=== PATIENT | male | born 1970 | race African-American/Black ===

== ENCOUNTER 2017-06-17 13:00 | Emergency (ER) | payer OTHER, SELFPAY ==
--- NOTE | 2017-06-17 15:00 | RAD ---
PA AND LATERAL CHEST: COMPARISON: 02/20/2010 FINDINGS: Heart size and mediastinum are within normal limits. Lungs are clear of infiltrates. Mild scoliosi s, convexed to the left. IMPRESSION: No active intrathoracic disease. POS: OFF
== END 2017-06-17 13:51 | disposition home or self-care (01) ==
LOC: ERS 13:00
DX: J06.9 Acute upper respiratory infection, unspecified (principal); I10 Essential (primary) hypertension; F41.9 Anxiety disorder, unspecified; Z79.899 Other long term (current) drug therapy
CPT/HCPCS: 71020

== ENCOUNTER 2017-10-22 09:03 | Emergency (ER) | payer OTHER, SELFPAY ==
[2017-10-22 09:44] LABS: Hemoglobin 13.2 g/dL (14.0-18.0); Mean Corpuscular HGB CONC 32.1 g/dL (32.0-36.0); Mean Corpuscular Hemoglobin 25.9 pg (27.0-31.0); Mean Corpuscular Volume 80.7 fl (80.0-94.0); Platelet Count 211 thou/uL (130-400); RBC Distribution Width 13.4 % (11.5-14.5); Red Blood Cell (RBC) Count 5.09 mill/uL (4.70-6.10); White Blood Cell (WBC) Count 6.3 thou/uL (4.8-10.8)
[2017-10-22 10:01] LABS: ALT (SGPT) 63 U/L (8-55); AST (SGOT) 68 U/L (5-34); Albumin 4.5 g/dL (3.5-5.0); Alkaline Phosphatase 77 U/L (40-150); Anion Gap 15 mmol/L (10-20); BUN (Urea Nitrogen) 11 mg/dL (8.9-20.6); Bilirubin, Total 0.6 mg/dL (0.2-1.2); Calc. Creatinine Clearance 0 mL/min (70-130); Calcium 9.8 mg/dL (7.8-10.44); Carbon Dioxide 26 mmol/L (22-29); Chloride 100 mmol/L (98-107); Estimated GFR-MDRD 85; Globulin 3.8 g/dL (2.4-3.5); Glucose 153 mg/dL (70-105); Potassium 4.3 mmol/L (3.5-5.1); Protein, Total 8.3 g/dL (6.0-8.3); Sodium 137 mmol/L (136-145)
[2017-10-22 10:04] LABS: Eosinophils 1 % (0-10); Lymphocytes 49 % (21-51); MDiff Complete? YES; Monocytes 1 % (0-10); Neutrophil 36 % (42-75); PLT Morphology Comment Appears Adequate; Reactive Lymphocytes 13 % (0-10); Stomatocytes SLIGHT = 2-5 cells (100X) (0-1/hpf)
[2017-10-22] MEDS ORDERED: Ketorolac Tromethamine 60 MG/2 ML VIAL ONE (10:48)
--- NOTE | 2017-10-22 10:55 | ULT ---
LEFT LOWER EXTREMITY VENOUS DUPLEX ULTRASOUND INCLUDING COLOR AND SPECTRAL DOPPLER IMAGING: HISTORY: A 46-year-old male with a history of left leg pain, primarily in the left calf and lateral thigh. FINDINGS: Exam performed from groin to ankle including visualized greater saphenous, common femoral, superficia l femoral, profunda femoral, popliteal, trifurcation, and posterior tibial vein regions. There is ph asic flow with normal compressibility and normal augmentation at all levels. No intraluminal thrombu s. IMPRESSION: No evidence of deep venous thrombosis. POS: ERIC
== END 2017-10-22 12:06 | disposition home or self-care (01) ==
LOC: ERS 09:03
DX: M79.662 Pain in left lower leg (principal); I10 Essential (primary) hypertension; F41.9 Anxiety disorder, unspecified; Z79.899 Other long term (current) drug therapy
CPT/HCPCS: 36415; 80053; 85025; 85379; 96372; J1885

== ENCOUNTER 2018-01-06 15:18 | Inpatient (IN) | payer SELFPAY ==
[2018-01-06] MEDS ORDERED: methylPREDNISolone Sod Succ/PF 125 MG/2 ML VIAL ONE (16:09)
[2018-01-06] MEDS ORDERED: diphenhydrAMINE 50 MG/ML VIAL ONE (16:09)
[2018-01-06 16:55] LABS: Hemoglobin 12.7 g/dL (14.0-18.0); Mean Corpuscular HGB CONC 31.9 g/dL (32.0-36.0); Mean Corpuscular Hemoglobin 25.6 pg (27.0-31.0); Mean Corpuscular Volume 80.1 fl (80.0-94.0); Mean Platelet Volume 8.3 fL (7.4-10.4); Platelet Count 203 thou/uL (130-400); RBC Distribution Width 13.6 % (11.5-14.5); Red Blood Cell (RBC) Count 4.97 mill/uL (4.70-6.10)
[2018-01-06 17:11] LABS: Band 5 % (5-11); Hypochromia SLIGHT = 6-15 cells (100X) (0-5/hpf); Lymphocytes 52 % (21-51); MDiff Complete? YES; Monocytes 4 % (0-10); Neutrophil 32 % (42-75); PLT Morphology Comment Appears Adequate; Polychromasia SLIGHT = 2-3 cells (100X) (0-2/hpf); Reactive Lymphocytes 7 % (0-10); Target Cells SLIGHT = 2-5 cells (100X) (0-1/hpf)
--- NOTE | 2018-01-06 17:14 | PDOC.FPRHP ---
- History of Present Illness Chief Complaint: Lip Swelling History of Present Illness: 47 yo AA male w/ pmh of HTN comes in with cc of lip swelling. Says he started to notice his lips to swell around 1:00. Pts friend who is in the room with him says it actually started earlier in the day. He had two [employer] for lunch around that time. Friend says lips were swelling before eating. Reports he was outside working in the yard. Thought he was bit by something. Was not around any new substances or any new chemicals. Pt reports getting a little SOB and felt like his throat was scratching before he came to the ER. Denies any n/v/d/c. Denies any chest pain. Pt denies any lightheadness or dizziness. During the time of the exam he said his mouth was dry and having a hard time swallowing. But had recently been given benadryl ED Course: benadryll, Famotidine, Solumedrol - Allergies/Adverse Reactions Allergies Allergy/AdvReac Type Severity Reaction Status Date / Time lisinopril Allergy Verified 01/06/18 17:22 - Home Medications Medication Instructions Recorded Confirmed Type Lisinopril [Zestril] 01/06/18 History - History PMHx: HTN PSHx: None FHx: Noncontributory Social: never smoker, drinks 6-10 beers a day, no illicit drug use - Review of Systems General: denies: fever/chills, weight/appetite/sleep changes, night sweats, fatigue Eyes: denies: eye pain, vision changes, other ENT: denies: nasal congestion, rhinorrhea, other Respiratory: reports: shortness of breath. denies: cough, congestion, exercise intolerance, other Cardiovascular: reports: edema (Lips very swollen and edematous). denies: chest pain, palpitation, paroxysmal nocturnal dyspnea Gastrointestinal: denies: nausea, vomiting, diarrhea, constipation, abdominal pain, GI bleeding Genitourinary: denies: incontinence, dysuria, discharge Skin: denies: rashes, lesions, jaundice, itching, other Musculoskeletal: reports: swelling (Of lips). denies: pain, tenderness, stiffness Neurological: denies: numbness, syncope, seizure, weakness Psychological: denies: anxiety, depression - Vital signs BP: [] HR: [] RR: [] Tmax: [] Pox: []% on [] Wt: [] - Physical Exam Constitutional: NAD, awake, alert and oriented, well developed HEENT: normocephalic and atraumatic, PERRLA, conjunctiva clear, no scleral icterus, TM's clear and intact, grossly normal hearing, normal nasal mucosa -HEENT: Lips very swollen. Tongue not swollen, airway clear. No sign of acute swelling Neck: supple, trachea midline, no LAD, no JVD, no thyromegaly, no bruits Chest: no-tender to palpation, no lesions Heart: RRR, normal S1/S2, no murmurs/rubs/gallops, pulses present, no edema Lungs: CTAB, no respiratory distress, good air movement, no rales/rhonchi, no wheezing Abdomen: soft, non-tender, bowel sounds present, no masses/distention Musculoskeletal: normal structure, normal tone Neurological: no focal deficit, normal sensation Skin: no rash/lesions, good turgor, capillary refill <2 seconds Heme/Lymphatic: no unusual bruising or bleeding, no purpura, no petechia Psychiatric: normal mood and affect, good judgment and insight, intact recent and remote memory FMR H&P: Results - Labs Result Diagrams: 01/06/18 16:31 01/06/18 16:31 Lab results: WBC 5.0 thou/uL (4.8-10.8) 01/06/18 16:31 Hgb 12.7 g/dL (14.0-18.0) L 01/06/18 16:31 Hct 39.8 % (42.0-52.0) L 01/06/18 16:31 MCV 80.1 fl (80.0-94.0) 01/06/18 16:31 Plt Count 203 thou/uL (130-400) 01/06/18 16:31 - EKG Interpretation EKG: No EKG FMR H&P: A/P - Problem List (1) Angioedema Current Visit: Yes Status: Acute Code(s): T78.3XXA - ANGIONEUROTIC EDEMA, INITIAL ENCOUNTER (2) HTN (hypertension) Current Visit: Yes Status: Acute Code(s): I10 - ESSENTIAL (PRIMARY) HYPERTENSION (3) Alcohol abuse Current Visit: Yes Status: Acute Code(s): F10.10 - ALCOHOL ABUSE, UNCOMPLICATED - Plan Angioedema -Lips swollen, throat scratchy upon admission. -Been on lisinopril for a year. Never had any problems before. Will discontinue at this time and the rest of his life. -Solumedrol ana laura -Famotidiine ana laura -Benadryll prn -ENT consulted- Dr. Taylor- Came and looked at throat. Clear at this time -Admit to IMCU for close observation HTN -discontinue lisinopril for life Alcohol Abuse -ASE protocol -Counseled on cutting back FMR H&P: Upper Level - Pertinent history Please refer to Dr. Solitario's detailed HPI for most details. Pt is a 47 yo BM w/ PMH of htn who presents to the ED with several hours of increasing swelling of his lips. He reports that he took his lisinopril in the morning, has been on the medication for about 1 year prescribed by his PCP at [facility]. He started noticing progressive swelling of his lower lip and started to feel like he was having some trouble breathing so he came to the ED. He had been working outside and thought it may have been a bug bite. No new foods today. Received famotidine, benadryl and steroids in ED. He is feeling better now, states his throat feels a bit dry after the benadryl, ENT has evaluated his airway and no edema of his tongue or airway present. Plan to Obs o/n in IMCU in the event of worsening and need to establish airway. General: AOx4, appears in no acute distress, appropriately dressed, groomed, appears approximate stated age. HEENT: moist mucus membranes, no pharyngeal edema, no tongue swelling, significant swelling of lower lip, no pincer vitaly or bite vitaly evident Cardiac: RRR, no murmurs, gallops, clicks or rubs Lungs: CTA, no wheezes, rales, rubs, rhonchi Abdomen: soft, non TTP Extremities: no peripheral edema A/P 1. angioedema 2/2 to [id number] pt to never again use tram-i medication for his htn, will need to follow up with his PCP to start another agent. Will admit to IMCU and obs o/n for worsening. Continue steroids, famotidine, benadryl , swallow study, NPO 2. htn-discontinue tram-i 3. alcohol dependence-drinks 6-10 daily, will implement ASE protocol for monitoring of signs of withdrawal in the event of extended stay - Plan Date/Time: 01/06/18 1710 I, Anna Holliday, have evaluated this patient and agree with findings/plan as outlined by sports internship resident. Pertinent changes/additions are listed here. Attending Addendum - Attending Addendum Date/Time: 01/07/18 0006 I personally evaluated the patient and discussed the management with Dr. Solitario on 01/06/18. I agree with the History, Examination, Assessment and Plan documented above with any addition or exceptions noted below- 47 yo male with h/o HTN presented c /o lip swelling and some scratchiness in his throat that began today. States that he had been working outside and thought he had been bit by something. After the swelling worsened he presented to ER. Of significance he is on an TRAM- inhibitor for his BP. PMH/PSH/All/Meds/ ROS reviewed and agree with resident's documentation. Afebrile P 69 BP 123/90 RR12 99% RA Exam repeated by me and agree with resident's findings. A/P: Angioedema secondary to TRAM inhibitor- patient evaluated by ENT and no evidence of airway obstruction or compromise. Monitor in IMCU overnight. Continue IV steroids, famotidine. 2) HTN- stable currently; continue to monitor and use alternate class of medication for control. 3) H/o alcohol use- ASE protocol.
[2018-01-06] MEDS ORDERED: Ondansetron HCl/PF 4 MG/2 ML Vial IVP PRN (17:15)
[2018-01-06 17:20] LABS: ALT (SGPT) 154 U/L (8-55); AST (SGOT) 149 U/L (5-34); Albumin 4.6 g/dL (3.5-5.0); Alkaline Phosphatase 94 U/L (40-150); Anion Gap 17 mmol/L (10-20); BUN (Urea Nitrogen) 6 mg/dL (8.9-20.6); Bilirubin, Total 0.6 mg/dL (0.2-1.2); Calc. Creatinine Clearance 0 mL/min (70-130); Calcium 9.9 mg/dL (7.8-10.44); Carbon Dioxide 25 mmol/L (22-29); Chloride 98 mmol/L (98-107); Estimated GFR-MDRD 86; Globulin 3.9 g/dL (2.4-3.5); Glucose 77 mg/dL (70-105); Potassium 4.3 mmol/L (3.5-5.1); Protein, Total 8.5 g/dL (6.0-8.3); Sodium 136 mmol/L (136-145)
[2018-01-06] MEDS ORDERED: Diazepam 5 MG TAB PO PRN (17:41)
[2018-01-06] MEDS ORDERED: Thiamine HCl 200 MG/2 ML VIAL IM SCH (17:45)
[2018-01-06] MEDS ORDERED: Diazepam 5 MG TAB PO SCH (17:45)
[2018-01-06] MEDS ORDERED: Famotidine 40 MG/4 ML VIAL SLOW IVP SCH ×2 (18:00→21:00)
[2018-01-06 18:20] VITALS: BMI 24.3
[2018-01-06] MEDS ORDERED: diphenhydrAMINE 25 MG CAP PO PRN (20:10)
[2018-01-07] MEDS ORDERED: Diazepam 5 MG TAB PO PRN (04:00)
[2018-01-07 07:27] VITALS: BP 121/78; TEMP 98.1
--- NOTE | 2018-01-07 08:33 | PDOC.FM ---
- Subjective Subjective: Pt doing much better this morning. Denies any SOB. Denies throat being scratchy or itching anywhere. No acute events overnight. No other problems at this time - Objective MAR Reviewed: Yes Vital Signs & Weight: Vital Signs (12 hours) Temp Pulse Resp BP Pulse Ox 01/07/18 07:26 98.1 F 67 16 121/78 99 Weight Weight 72.575 kg I&O: 01/06/18 01/07/18 01/08/18 06:59 06:59 06:59 Intake Total 300 Output Total 450 Balance -150 Result Diagrams: 01/06/18 16:31 01/06/18 16:31 EKG Reviewed by me: Yes Phys Exam - Physical Examination Constitutional: NAD HEENT: PERRLA, moist MMs, sclera anicteric lips still swollen a little, much improved from yesterday Neck: no nodes, no JVD, supple, full ROM Respiratory: no wheezing, no rales, no rhonchi, clear to auscultation bilateral Cardiovascular: RRR, no significant murmur Gastrointestinal: soft, non-tender, no distention, positive bowel sounds Musculoskeletal: no edema, pulses present Neurological: non-focal, normal sensation, moves all 4 limbs Lymphatic: no nodes Psychiatric: normal affect, A&O x 3 Skin: no rash, normal turgor, cap refill <2 seconds Dx/Plan (1) Angioedema Code(s): T78.3XXA - ANGIONEUROTIC EDEMA, INITIAL ENCOUNTER Status: Acute (2) HTN (hypertension) Code(s): I10 - ESSENTIAL (PRIMARY) HYPERTENSION Status: Acute (3) Alcohol abuse Code(s): F10.10 - ALCOHOL ABUSE, UNCOMPLICATED Status: Acute - Plan Plan: Angioedema -Lips swollen, throat scratchy upon admission. Swelling has improved significantly. Pt doing better. Breahting fine. Reports no scratchy throat. -Been on lisinopril for a year. Never had any problems before. Will discontinue at this time and the rest of his life. -Solumedrol ana laura -Famotidiine ana laura -Benadryll prn -ENT consulted- Dr. Taylor- Came and looked at throat yesterday. Clear at this time. HTN -discontinue lisinopril for life -F/u outpatient to reassess blood pressure Alcohol Abuse -ASE protocol -Counseled on cutting back
[2018-01-07] MEDS ORDERED: Magnesium Oxide 400 MG TAB PO SCH (09:00)
[2018-01-07] MEDS ORDERED: Folic Acid 1 MG TAB PO SCH (09:00)
[2018-01-07] MEDS ORDERED: Multivitamin W/ Minerals 1 TAB PO SCH (09:00)
[2018-01-07] MEDS ORDERED: Famotidine 40 MG/4 ML VIAL SLOW IVP SCH (09:00)
--- NOTE | 2018-01-07 11:25 | HP ---
DATE OF SERVICE: 01/07/2018 This is an addendum to the note of Dr. Yefri Solitario. HISTORY OF PRESENT ILLNESS: Mr. Souza is a pleasant 47-year-old black male patient who has been on li sinopril for high blood pressure for at least the last year. Yesterday, he developed some lower lip edema and a feeling of dyspnea. He presented to the emergency room with signs and symptoms of angioe mouna. He was admitted overnight for observation. By the next morning the swelling had resolved comp letely. He never demonstrated any airway compromise. LABORATORY DATA: CBC shows a white count of 12,000. His hemoglobin was 12.7, hematocrit is 39.8. C hemistries: Sodium 136, potassium 4.3, chloride 98, bicarbonate 25, BUN is 6, creatinine is 1.11. L FTs are elevated with an AST of 149 and ALT of 154. Total bilirubin is 0.6. His angioedema has comp letely resolved. PLAN: We will of course stop TRAM inhibitors. He will follow up at [facility] in 1 week to resta rt a new blood pressure medication if needed. Given his elevated LFTs, even though he has a history of possible alcohol abuse, would recommend we a t least screen him for hepatitis B and C.
--- NOTE | 2018-01-07 14:12 | DIS-2 ---
DATE OF ADMISSION: 01/06/2018 DATE OF DISCHARGE: 01/07/2018 ADMITTING ATTENDING: Dr. Kathleen Macedo. DISCHARGE ATTENDING: Dr. Kwok. RESIDENTS: Yefri Solitario, PGY-1. CONSULTATIONS: Dr. Taylor with [facility], Dr. Madhu Sanabria. PROCEDURES: None. IMAGING: None. PRIMARY DIAGNOSES: 1. Angioedema secondary to lisinopril. 2. Hypertension. 3. Alcohol abuse. MEDICATIONS: None. DISCONTINUED MEDICATIONS: Include lisinopril. HISTORY OF PRESENT ILLNESS AND BRIEF HOSPITAL COURSE: This is a 47-year-old male that came in yester day after about 01:00, started having lip swelling of unknown type, maybe he got bitten, there was n o bite mijares noted on his lips and had had no new chemical exposures. He did have two [employer] [facility] [employer] but friend reports that the lips were swelling beforehand. Patient had bee n on lisinopril for a year due to hypertension that was his only medication, no other new foods or an ything. At this time we assessed him, he was having a little bit of scratchy throat and shortness of breath. We then admitted him to [facility], observed him where he did better, did continue to improve, [place] was better today, had no shortness of breath, O2 sats were normal. Dr. Taylor assessed him an d said airway was patent. So at this time, we discharged him, discontinued his lisinopril. PERTINENT LABORATORY DATA: CBC was fine. His AST was 149, ALT was 154, likely due to the fact that he drinks 6-8 beers a day. Discussed with him on counseling including drinking and we will get a hep atitis B and hepatitis C panel, which will follow up with him. DISPOSITION: Stable. DISCHARGE INSTRUCTIONS: 1. Location: Home. 2. Activity: As tolerated. 3. Diet: Heart healthy diet. 4. FOLLOWUP: We will need follow up at [facility] within 14 days for hospital followup v isit and to reassess his blood pressure as he is no longer, allowed to take lisinopril.
== END 2018-01-07 11:02 | disposition home or self-care (01) | DRG 916 ==
LOC: ERS 15:18 → IMCU/EMU 17:21
PROVIDERS: ADMIT Family Medicine; ATTEND Family Medicine
DX: T78.3XXA Angioneurotic edema, initial encounter (principal); F10.10 Alcohol abuse, uncomplicated; I10 Essential (primary) hypertension; T46.4X5A Adverse effect of angiotensin-converting-enzyme inhibitors, initial encounter; Y92.89 Other specified places as the place of occurrence of the external cause
CPT/HCPCS: 80053; 85025; 96374; 96375; J1200; J2930; J3411; J3475; J7050

== ENCOUNTER 2018-03-10 08:37 | Emergency (ER) | payer SELFPAY ==
[2018-03-10] MEDS ORDERED: diphenhydrAMINE 25 MG CAP ONE (09:00)
[2018-03-10] MEDS ORDERED: Dexamethasone 4 MG TAB ONE (09:52)
[2018-03-10] MEDS ORDERED: hydrOXYzine 25 MG TAB ONE (09:57)
[2018-03-10] MEDS ORDERED: Famotidine 20 MG TAB ONE (09:57)
== END 2018-03-10 11:13 | disposition home or self-care (01) ==
LOC: ERS 08:37
DX: S80.862A Insect bite (nonvenomous), left lower leg, initial encounter (principal); S80.861A Insect bite (nonvenomous), right lower leg, initial encounter; L29.9 Pruritus, unspecified; I10 Essential (primary) hypertension; F41.9 Anxiety disorder, unspecified; Z79.899 Other long term (current) drug therapy; W57.XXXA Bitten or stung by nonvenomous insect and other nonvenomous arthropods, initial encounter
CPT/HCPCS: 99282; J8540

== ENCOUNTER 2018-04-05 12:07 | Emergency (ER) | payer SELFPAY ==
[2018-04-05] MEDS ORDERED: Adacel (T-DAP) 0.5 ML VIAL ONE (12:49)
[2018-04-05] MEDS ORDERED: Rabies Vaccine Human 2.5 UNITS VIAL IM ONE (13:15)
== END 2018-04-05 14:14 | disposition home or self-care (01) ==
LOC: ERS 12:07
DX: S71.151A Open bite, right thigh, initial encounter (principal); F41.9 Anxiety disorder, unspecified; I10 Essential (primary) hypertension; Z79.899 Other long term (current) drug therapy; W54.0XXA Bitten by dog, initial encounter
CPT/HCPCS: 90375; 90471; 90472; 90675; 90715; 96372

== ENCOUNTER 2018-05-31 12:45 | Emergency (ER) | payer SELFPAY ==
--- NOTE | 2018-05-31 13:49 | RAD ---
RIGHT THUMB RADIOGRAPHS: DATE: 05/31/18. PROVIDED CLINICAL HISTORY: Right thumb pain. FINDINGS: There is no evidence for a fracture or other acute osseous abnormality. If there is persistent clini merna concern, conservative management and followup imaging are advised. IMPRESSION: As above. POS: ERIC
== END 2018-05-31 17:19 | disposition home or self-care (01) ==
LOC: ERS 12:45
DX: S60.011A Contusion of right thumb without damage to nail, initial encounter (principal); I10 Essential (primary) hypertension; F41.9 Anxiety disorder, unspecified; W20.8XXA Other cause of strike by thrown, projected or falling object, initial encounter

== ENCOUNTER 2018-09-11 07:58 | Emergency (ER) | payer SELFPAY ==
[2018-09-11] MEDS ORDERED: Acetaminophen 500 MG TAB ONE (08:52)
--- NOTE | 2018-09-11 10:25 | RAD ---
PORTABLE CHEST 1 VIEW: Date: 09/11/18 Time: 0901 hours HISTORY: Cough. FINDINGS: Comparison made with exam of 12/29/16. The heart size is normal. The lungs are expanded without focal areas of consolidation, pneumothorax, or pleural effusions. IMPRESSION: No acute process. POS: [facility]
== END 2018-09-11 09:33 | disposition home or self-care (01) ==
LOC: ERS 07:58
DX: B34.9 Viral infection, unspecified (principal); I10 Essential (primary) hypertension; F41.9 Anxiety disorder, unspecified
CPT/HCPCS: 71045; 87804

== ENCOUNTER 2020-06-23 08:37 | Emergency (ER) | payer SELFPAY ==
[2020-06-23] MEDS ORDERED: Aspirin Chewable 81 MG TAB ONE (09:14)
[2020-06-23 09:25] LABS: #Eosinphils 0.4 thou/uL (0.0-0.7); #Monocytes 0.4 thou/uL (0.11-0.59); #Neutrophils 2.5 thou/uL (1.40-6.50); %Basophils 0.6 % (0.0-1.0); %Eosinophils 5.6 % (0.0-10.0); %Lymphocytes 47.6 % (21.0-51.0); %Neutrophils 39.2 % (42.0-75.0); Hemoglobin 13.2 g/dL (14.0-18.0); Mean Corpuscular HGB CONC 31.4 g/dL (32.0-36.0); Mean Corpuscular Hemoglobin 26.7 pg (27.0-31.0); Mean Corpuscular Volume 84.9 fL (78.0-98.0); Mean Platelet Volume 8.6 fL (7.4-10.4); Platelet Count 227 thou/uL (130-400); RBC Distribution Width 13.5 % (11.5-14.5); Red Blood Cell (RBC) Count 4.95 mill/uL (4.70-6.10); White Blood Cell (WBC) Count 6.3 thou/uL (4.8-10.8)
[2020-06-23 09:32] LABS: ALT (SGPT) 71 U/L (8-55); AST (SGOT) 122 U/L (5-34); Albumin 3.9 g/dL (3.5-5.0); Alkaline Phosphatase 105 U/L (40-110); Anion Gap 16 mmol/L (10-20); BUN (Urea Nitrogen) 5 mg/dL (8.9-20.6); Bilirubin, Total 0.5 mg/dL (0.2-1.2); Calc. Creatinine Clearance 0 mL/min (70-130); Calcium 9.2 mg/dL (7.8-10.44); Carbon Dioxide 24 mmol/L (22-29); Chloride 104 mmol/L (98-107); Estimated GFR-MDRD Greater than 90; Glucose 85 mg/dL (70-105); Potassium 3.8 mmol/L (3.5-5.1); Protein, Total 8.9 g/dL (6.0-8.3); Sodium 140 mmol/L (136-145)
--- NOTE | 2020-06-23 10:46 | RAD ---
PORTABLE CHEST: HISTORY: Cough. COMPARISON: 09/11/2018 exam. FINDINGS: Heart size and mediastinum are within normal limits. The lungs are clear of any infiltrative process . No significant bony findings. IMPRESSION: No active intrathoracic disease. POS: OFF
== END 2020-06-23 10:40 | disposition home or self-care (01) ==
LOC: ERS 08:37
DX: R07.89 Other chest pain (principal); I10 Essential (primary) hypertension; F41.9 Anxiety disorder, unspecified
CPT/HCPCS: 71045; 80053; 84484; 85025; 93005

== ENCOUNTER 2020-07-15 09:57 | Emergency (ER) | payer SELFPAY ==
[2020-07-15 10:18] LABS: #Basophils 0.1 thou/uL (0.0-0.2); #Eosinphils 0.4 thou/uL (0.0-0.7); #Lymphocytes 2.6 thou/uL (1.20-3.40); #Monocytes 0.5 thou/uL (0.11-0.59); #Neutrophils 2.6 thou/uL (1.40-6.50); %Basophils 1.3 % (0.0-1.0); %Eosinophils 5.8 % (0.0-10.0); %Lymphocytes 42.7 % (21.0-51.0); %Monocytes 7.5 % (0.0-10.0); %Neutrophils 42.8 % (42.0-75.0); Mean Corpuscular HGB CONC 32.1 g/dL (32.0-36.0); Mean Corpuscular Hemoglobin 27.2 pg (27.0-31.0); Mean Corpuscular Volume 84.9 fL (78.0-98.0); Mean Platelet Volume 9.1 fL (7.4-10.4); Platelet Count 230 thou/uL (130-400); RBC Distribution Width 13.2 % (11.5-14.5); Red Blood Cell (RBC) Count 5.15 mill/uL (4.70-6.10); White Blood Cell (WBC) Count 6.2 thou/uL (4.8-10.8)
[2020-07-15] MEDS ORDERED: Lidocaine Viscous Sol 2% 15 ml UD Cup ONE (10:32)
[2020-07-15] MEDS ORDERED: Mag-Al 1200 mg/1200 mg/30 ML UDCUP ONE (10:32)
[2020-07-15 10:41] LABS: ALT (SGPT) 41 U/L (8-55); AST (SGOT) 51 U/L (5-34); Albumin 3.8 g/dL (3.5-5.0); Alkaline Phosphatase 78 U/L (40-110); Anion Gap 13 mmol/L (10-20); BUN (Urea Nitrogen) 7 mg/dL (8.9-20.6); Bilirubin, Total 0.7 mg/dL (0.2-1.2); Calc. Creatinine Clearance 0 mL/min (70-130); Calcium 9.3 mg/dL (7.8-10.44); Carbon Dioxide 25 mmol/L (22-29); Chloride 103 mmol/L (98-107); Estimated GFR-MDRD 88; Glucose 120 mg/dL (70-105); Potassium 3.7 mmol/L (3.5-5.1); Protein, Total 8.8 g/dL (6.0-8.3); Sodium 137 mmol/L (136-145)
--- NOTE | 2020-07-15 11:17 | RAD ---
CHEST 1 VIEW: Date: 07/15/2020 HISTORY: Chest pain. COMPARISON: Radiograph dated 06/23/2020. FINDINGS: Lungs are clear. No pneumothorax or effusion. Cardiac silhouette and mediastinal contours are within normal limits. No acute osseous abnormality. IMPRESSION: No acute intrathoracic abnormality. POS: HOME
== END 2020-07-15 14:20 | disposition home or self-care (01) ==
LOC: ERS 09:57
DX: R07.89 Other chest pain (principal); I10 Essential (primary) hypertension; F41.9 Anxiety disorder, unspecified
CPT/HCPCS: 36415; 71045; 80053; 84484; 85025; 93005

== ENCOUNTER 2020-09-23 09:16 | Emergency (ER) | payer SELFPAY ==
[2020-09-23 11:03] LABS: ALT (SGPT) 55 U/L (8-55); AST (SGOT) 80 U/L (5-34); Albumin 3.9 g/dL (3.5-5.0); Alkaline Phosphatase 92 U/L (40-110); Anion Gap 14 mmol/L (10-20); BUN (Urea Nitrogen) 8 mg/dL (8.9-20.6); Bilirubin, Total 0.8 mg/dL (0.2-1.2); Calc. Creatinine Clearance 0 mL/min (70-130); Carbon Dioxide 26 mmol/L (22-29); Chloride 100 mmol/L (98-107); Globulin 5.1 g/dL (2.4-3.5); Glucose 80 mg/dL (70-105); Lipase 18 U/L (8-78); Potassium 4.2 mmol/L (3.5-5.1); Sodium 136 mmol/L (136-145)
[2020-09-23 11:04] LABS: #Eosinphils 0.2 thou/uL (0.0-0.7); #Lymphocytes 1.7 thou/uL (1.20-3.40); #Monocytes 0.6 thou/uL (0.11-0.59); #Neutrophils 2.6 thou/uL (1.40-6.50); %Basophils 0.1 % (0.0-1.0); %Lymphocytes 33.5 % (21.0-51.0); %Monocytes 11.4 % (0.0-10.0); Hemoglobin 12.9 g/dL (14.0-18.0); Mean Corpuscular HGB CONC 31.7 g/dL (32.0-36.0); Mean Corpuscular Hemoglobin 25.9 pg (27.0-31.0); Mean Corpuscular Volume 81.6 fL (78.0-98.0); Mean Platelet Volume 9.1 fL (7.4-10.4); Platelet Count 188 thou/uL (130-400); RBC Distribution Width 13.3 % (11.5-14.5); Red Blood Cell (RBC) Count 4.98 mill/uL (4.70-6.10)
[2020-09-23 11:28] LABS: Bilirubin Negative (Negative); Blood, Urine Negative (Negative); Clarity Clear (Clear); Glucose, Urine (Dipstick) Normal (Negative); Ketone, Urine 10 mg/dL (Negative); Leukocyte Negative Leu/uL (Negative); Nitrite Negative (Negative); Protein, Urine (Dipstick) 10 mg/dL (Neg-Trace); Specific Gravity, Urine 1.019 (1.002-1.036); Urobilinogen Normal mg/dL (Less than 2)
== END 2020-09-23 11:52 | disposition home or self-care (01) ==
LOC: ERS 09:16
DX: K40.90 Unilateral inguinal hernia, without obstruction or gangrene, not specified as recurrent (principal); J20.9 Acute bronchitis, unspecified; I10 Essential (primary) hypertension; K21.9 Gastro-esophageal reflux disease without esophagitis; Z79.899 Other long term (current) drug therapy
CPT/HCPCS: 36415; 80053; 81003; 83690; 85025; 99283

== ENCOUNTER 2020-11-24 08:37 | Emergency (ER) | payer SELFPAY ==
[2020-11-24] MEDS ORDERED: Ketorolac Tromethamine 30 MG/ML VIAL ONE (09:57)
== END 2020-11-24 10:25 | disposition home or self-care (01) ==
LOC: ERS 08:37
DX: S90.32XA Contusion of left foot, initial encounter (principal); K21.9 Gastro-esophageal reflux disease without esophagitis; I10 Essential (primary) hypertension; X50.1XXA Overexertion from prolonged static or awkward postures, initial encounter
CPT/HCPCS: 96372; J1885

== ENCOUNTER 2021-04-28 12:23 | Emergency (ER) | payer SELFPAY ==
[~2021-04-28 12:23] MED LIST: Iopamidol-370 76% 500 ML 1 ML ONE
[2021-04-28] MEDS ORDERED: Morphine 4 MG/ML VIAL ONE ×2 (12:56→14:59)
[2021-04-28 13:06] LABS: #Basophils 0.1 thou/uL (0.0-0.2); #Eosinphils 0.1 thou/uL (0.0-0.7); #Lymphocytes 2.2 thou/uL (1.20-3.40); #Monocytes 0.4 thou/uL (0.11-0.59); #Neutrophils 5.7 thou/uL (1.40-6.50); %Basophils 1.1 % (0.0-1.0); %Eosinophils 0.7 % (0.0-10.0); %Lymphocytes 26.2 % (21.0-51.0); %Monocytes 4.4 % (0.0-10.0); %Neutrophils 67.7 % (42.0-75.0); Hemoglobin 11.8 g/dL (14.0-18.0); Mean Corpuscular HGB CONC 34.1 g/dL (32.0-36.0); Mean Corpuscular Hemoglobin 28.2 pg (27.0-31.0); Mean Corpuscular Volume 82.5 fL (78.0-98.0); Mean Platelet Volume 7.7 fL (7.4-10.4); Platelet Count 174 thou/uL (130-400); RBC Distribution Width 13.6 % (11.5-14.5); White Blood Cell (WBC) Count 8.5 thou/uL (4.8-10.8)
[2021-04-28 13:29] LABS: ALT (SGPT) 68 U/L (8-55); AST (SGOT) 110 U/L (5-34); Albumin 3.6 g/dL (3.5-5.0); Alkaline Phosphatase 97 U/L (40-110); Anion Gap 16 mmol/L (10-20); BUN (Urea Nitrogen) 11 mg/dL (8.9-20.6); Bilirubin, Total 0.9 mg/dL (0.2-1.2); CK (CPK) 92 U/L (30-200); Calc. Creatinine Clearance 0 mL/min (70-130); Calcium 8.7 mg/dL (7.8-10.44); Carbon Dioxide 20 mmol/L (22-29); Chloride 106 mmol/L (98-107); Globulin 4.7 g/dL (2.4-3.5); Glucose 110 mg/dL (70-105); Lipase 630 U/L (8-78); Potassium 4.2 mmol/L (3.5-5.1); Protein, Total 8.3 g/dL (6.0-8.3); Sodium 138 mmol/L (136-145)
[2021-04-28] MEDS ORDERED: Ketorolac Tromethamine 30 MG/ML VIAL ONE (14:59)
[2021-04-28 15:33] LABS: Bilirubin Negative (Negative); Blood, Urine Negative (Negative); Clarity Clear (Clear); Glucose, Urine (Dipstick) Normal (Negative); Ketone, Urine Negative (Negative); Leukocyte Negative Leu/uL (Negative); Nitrite Negative (Negative); Protein, Urine (Dipstick) Negative (Neg-Trace); Specific Gravity, Urine 1.038 (1.002-1.036); Urobilinogen Normal mg/dL (Less than 2)
== END 2021-04-28 17:17 | disposition home or self-care (01) ==
LOC: ERS 12:23
DX: K85.90 Acute pancreatitis without necrosis or infection, unspecified (principal); I10 Essential (primary) hypertension; K21.9 Gastro-esophageal reflux disease without esophagitis; Z21 Asymptomatic human immunodeficiency virus [HIV] infection status; Z91.14 Patient's other noncompliance with medication regimen
CPT/HCPCS: 36415; 74177; 76705; 80053; 81003; 82550; 83690; 84484; 85025; 93005; 94760; 96374; 96375; 96376; J1885; J2270; Q9967

== ENCOUNTER 2021-07-20 20:22 | Emergency (ER) | payer SELFPAY ==
[2021-07-20 22:33] LABS: Syphilis Antibody Nonreactive (Nonreactive); Syphilis Antibody Index 0.08 S/CO (<1.00 Non-Reactive)
== END 2021-07-20 22:00 | disposition home or self-care (01) ==
LOC: ERS 20:22
DX: R21 Rash and other nonspecific skin eruption (principal); B20 Human immunodeficiency virus [HIV] disease; I10 Essential (primary) hypertension; Z79.899 Other long term (current) drug therapy
CPT/HCPCS: 36415; 86780; 99283

== ENCOUNTER 2021-08-25 14:00 | Emergency (ER) | payer SELFPAY | END 2021-08-25 17:21 | disposition home or self-care (01) | LOC: ERS 14:00 | DX: J06.9 Acute upper respiratory infection, unspecified (principal); I10 Essential (primary) hypertension | CPT/HCPCS: 99283 ==

== ENCOUNTER 2022-03-22 20:24 | Emergency (ER) | payer SELFPAY ==
[~2022-03-22 20:24] MED LIST changes: +ISOVUE-370 76%-LOCM 1 ML ONE; -Iopamidol-370 76% 500 ML 1 ML ONE
[2022-03-22 23:27] LABS: Bilirubin Negative (Negative); Blood, Urine Trace (Negative); Clarity Clear (Clear); Glucose, Urine (Dipstick) Normal (Negative); Ketone, Urine 20 mg/dL (Negative); Leukocyte Negative Leu/uL (Negative); Nitrite Negative (Negative); Protein, Urine (Dipstick) 10 mg/dL (Neg-Trace); Specific Gravity, Urine 1.016 (1.002-1.036); Urobilinogen Normal mg/dL (Less than 2); pH, Urine 5.5 (5.0-9.0)
[2022-03-22 23:33] LABS: Bacteria/HPF None Seen HPF (None Seen); RBC/HPF 0-3 HPF (0-3); Squamous Epithelial 0-3 HPF (0-3); WBC/HPF None Seen HPF (0-3)
[2022-03-22] MEDS ORDERED: Morphine 4 MG/ML VIAL ONE (23:59)
[2022-03-23 00:26] LABS: ALT (SGPT) 84 U/L (8-55); AST (SGOT) 172 U/L (5-34); Albumin 4.7 g/dL (3.5-5.0); Alkaline Phosphatase 117 U/L (40-110); Anion Gap 23 mmol/L (10-20); BUN (Urea Nitrogen) 11 mg/dL (8.4-25.7); Bilirubin, Total 0.9 mg/dL (0.2-1.2); Calc. Creatinine Clearance 0 mL/min (70-130); Calcium 10.2 mg/dL (7.8-10.44); Carbon Dioxide 20 mmol/L (22-29); Chloride 99 mmol/L (98-107); Estimated GFR 86; Globulin 3.9 g/dL (2.4-3.5); Glucose 75 mg/dL (70-105); Potassium 3.9 mmol/L (3.5-5.1); Protein, Total 8.6 g/dL (6.0-8.3); Sodium 138 mmol/L (136-145)
[2022-03-23 00:28] LABS: #Lymphocytes 1.8 thou/uL (1.20-3.40); #Monocytes 0.5 thou/uL (0.11-0.59); #Neutrophils 3.2 thou/uL (1.40-6.50); %Basophils 0.5 % (0.0-1.0); %Eosinophils 0.9 % (0.0-10.0); %Monocytes 8.5 % (0.0-10.0); %Neutrophils 57.1 % (42.0-75.0); Hemoglobin 13.2 g/dL (14.0-18.0); Mean Corpuscular Volume 84.2 fL (78.0-98.0); Mean Platelet Volume 8.1 fL (7.4-10.4); Platelet Count 134 thou/uL (130-400); RBC Distribution Width 12.7 % (11.5-14.5); White Blood Cell (WBC) Count 5.5 thou/uL (4.8-10.8)
== END 2022-03-23 04:39 | disposition home or self-care (01) ==
LOC: ERS 20:24
DX: K85.20 Alcohol induced acute pancreatitis without necrosis or infection (principal); I10 Essential (primary) hypertension
CPT/HCPCS: 74177; 80053; 81003; 81015; 83690; 85025; 85652; 86140; 87086; 96374; J2270; Q9966

== ENCOUNTER 2022-04-21 06:58 | Emergency (ER) | payer SELFPAY ==
[2022-04-21 08:02] LABS: Bilirubin Negative (Negative); Blood, Urine Negative (Negative); Clarity Clear (Clear); Glucose, Urine (Dipstick) Normal (Negative); Ketone, Urine Negative (Negative); Leukocyte Negative Leu/uL (Negative); Nitrite Negative (Negative); Protein, Urine (Dipstick) Negative (Neg-Trace); Specific Gravity, Urine 1.008 (1.002-1.036); Urobilinogen Normal mg/dL (Less than 2)
== END 2022-04-21 08:48 | disposition home or self-care (01) ==
LOC: ERS 06:58
DX: Z71.1 Person with feared health complaint in whom no diagnosis is made (principal); I10 Essential (primary) hypertension; B20 Human immunodeficiency virus [HIV] disease; Z79.899 Other long term (current) drug therapy
CPT/HCPCS: 81003; 99283

== ENCOUNTER 2022-09-08 08:37 | Emergency (ER) | payer SELFPAY | END 2022-09-08 09:01 | disposition home or self-care (01) | LOC: ERS 08:37 | DX: R05.1 Acute cough (principal); I10 Essential (primary) hypertension | CPT/HCPCS: 99283 ==

== ENCOUNTER 2022-12-17 09:56 | Emergency (ER) | payer OTHER, SELFPAY ==
[2022-12-17] MEDS ORDERED: Ibuprofen 200 MG TAB ONE (10:42)
== END 2022-12-17 11:20 | disposition home or self-care (01) ==
LOC: ERS 09:56
DX: S60.052A Contusion of left little finger without damage to nail, initial encounter (principal); I10 Essential (primary) hypertension; W22.8XXA Striking against or struck by other objects, initial encounter